=== PATIENT | male | born 2000 | race African-American/Black ===

== ENCOUNTER 2024-07-21 08:01 | Emergency (ER) | payer MEDICAID, OTHER ==
[~2024-07-21] VITALS: Ht 180.3 cm; Wt 84.4 kg
[2024-07-21 08:22] VITALS: BP 128/78; PULSE 61; RESP 16; TEMP 97.5; O2SAT 100
[2024-07-21] MEDS: ACETAMINOPHEN 500 MG TAB PO ONE (08:39)
[2024-07-21] MEDS ORDERED: AUG875T PO (09:23)
[2024-07-21] MEDS: FLUORESCEIN SOD OPTH TEST STRIP EACHEYE ONE (09:31)
[2024-07-21] MEDS ORDERED: HYDR-4902 PO (09:57)
[2024-07-21] MEDS ORDERED: IBUP-1455 PO (09:57)
== END 2024-07-21 09:52 | disposition home or self-care (01) ==
LOC: ER 08:01
DX: S02.32XA Fracture of orbital floor, left side, initial encounter for closed fracture (principal); H11.33 Conjunctival hemorrhage, bilateral; Z88.1 Allergy status to other antibiotic agents; W10.8XXA Fall (on) (from) other stairs and steps, initial encounter; Y93.89 Activity, other specified; Y92.89 Other specified places as the place of occurrence of the external cause; Y99.8 Other external cause status
CPT/HCPCS: 70450; 70486